=== PATIENT | female | born 1995 | race Caucasian/White ===

== ENCOUNTER 2017-03-12 16:48 | Emergency (ER) | payer OTHER ==
[~2017-03-12] VITALS: Ht 160 cm; Wt 59.0 kg
[~2017-03-12 16:48] MED LIST: AMOX1TAB12 PO; CEFADROXIL500 MG PO; DUI500 PO; OBSTETRIX EC1 TAB.EC PO; PYRIDIUM100 MG PO
== END 2017-03-12 22:32 | disposition home or self-care (01) ==
LOC: ER 16:48
DX: B34.9 Viral infection, unspecified (principal)

== ENCOUNTER 2017-04-15 11:00 | Emergency (ER) | payer OTHER ==
[~2017-04-15] VITALS: Ht 160 cm; Wt 58.1 kg
== END 2017-04-15 15:26 | disposition home or self-care (01) ==
LOC: ER 11:00
DX: K52.9 Noninfective gastroenteritis and colitis, unspecified (principal)

== ENCOUNTER 2018-05-10 16:49 | Emergency (ER) | payer OTHER ==
[~2018-05-10] VITALS: Ht 160 cm; Wt 61.2 kg
== END 2018-05-10 20:45 | disposition home or self-care (01) ==
LOC: ER 16:49
DX: R51 Headache (principal)

== ENCOUNTER 2019-03-06 17:26 | Emergency (ER) | payer OTHER ==
[~2019-03-06] VITALS: Ht 160 cm; Wt 64.9 kg
[2019-03-06] MEDS ORDERED: ZITHROMAX500 MG PO (21:22)
[2019-03-06] MEDS ORDERED: TUSNEL LIQUID178 ML PO (21:22)
== END 2019-03-06 21:29 | disposition home or self-care (01) ==
LOC: ER 17:26
DX: J06.9 Acute upper respiratory infection, unspecified (principal); B96.0 Mycoplasma pneumoniae [M. pneumoniae] as the cause of diseases classified elsewhere

== ENCOUNTER → 2020-06-14 | Emergency (ER) | payer OTHER ==
[~2020-06-14] VITALS: Ht 160 cm; Wt 68.9 kg
[~2020-06-14] MED LIST changes: +PERMETHRIN60 GM TOP; +TUSNEL LIQUID178 ML PO; +ZITHROMAX500 MG PO
== END | disposition home or self-care (01) ==
LOC: ER 14:39
DX: B86 Scabies (principal)

== ENCOUNTER 2021-01-04 16:46 | Emergency (ER) | payer OTHER ==
[~2021-01-04] VITALS: Ht 160 cm; Wt 73.5 kg
== END 2021-01-04 22:27 | disposition home or self-care (01) ==
LOC: ER 16:46
DX: N20.0 Calculus of kidney (principal); Z20.822 Contact with and (suspected) exposure to COVID-19

== ENCOUNTER 2022-01-17 19:30 | Emergency (ER) | payer OTHER ==
[~2022-01-17] VITALS: Ht 165.1 cm; Wt 67.1 kg
== END 2022-01-17 21:15 | disposition home or self-care (01) ==
LOC: ER 19:30
DX: J10.1 Influenza due to other identified influenza virus with other respiratory manifestations (principal); A49.3 Mycoplasma infection, unspecified site; Z20.822 Contact with and (suspected) exposure to COVID-19

== ENCOUNTER 2022-03-27 12:16 | Emergency (ER) | payer OTHER ==
[~2022-03-27] VITALS: Ht 160 cm; Wt 70.3 kg
== END 2022-03-27 17:27 | disposition home or self-care (01) ==
LOC: ER 12:16
DX: N83.02 Follicular cyst of left ovary (principal); N83.01 Follicular cyst of right ovary; R10.2 Pelvic and perineal pain

== ENCOUNTER 2022-06-11 23:03 | Emergency (ER) | payer OTHER ==
[~2022-06-11] VITALS: Ht 160 cm; Wt 68.9 kg
[2022-06-12] MEDS ORDERED: KETO10TA2 PO (03:17)
[2022-06-12] MEDS ORDERED: ORPHENADRINE C100 MG PO (03:17)
== END 2022-06-12 03:31 ==
LOC: ER 23:03
DX: R07.89 Other chest pain (principal); R42 Dizziness and giddiness

== ENCOUNTER 2022-09-26 11:55 | Emergency (ER) | payer OTHER ==
[~2022-09-26] VITALS: Ht 160 cm; Wt 72.6 kg
[~2022-09-26 11:55] MED LIST changes: +KETO10TA2 PO; +ORPHENADRINE C100 MG PO
== END 2022-09-26 18:11 | disposition home or self-care (01) ==
LOC: ER 11:55
PROVIDERS: Nurse Practitioner Family
DX: N39.0 Urinary tract infection, site not specified (principal)